=== PATIENT | male | born 1955 | race Hispanic/Latino ===

== ENCOUNTER → 2022-08-03 | Day surgery (SDC) | payer MEDICARE ==
[2022-08-01 12:27] VITALS: BMI 26.3
[~2022-08-03] MED LIST: PROPOFOL 40 ML ONE
== END ==
LOC: CSHSDC 05:40
PROVIDERS: ATTEND Surgery
PROC: 0DJD8ZZ Inspection of Lower Intestinal Tract, Via Natural or Artificial Opening Endoscopic (ICD-10-PCS; principal; 2022-08-03)
DX: K92.1 Melena (principal); R10.2 Pelvic and perineal pain; K59.04 Chronic idiopathic constipation; K64.1 Second degree hemorrhoids; E11.9 Type 2 diabetes mellitus without complications; I10 Essential (primary) hypertension; Z79.84 Long term (current) use of oral hypoglycemic drugs; Z79.899 Other long term (current) drug therapy
CPT/HCPCS: J2704